=== PATIENT | female | born 1960 | race Caucasian/White ===

== ENCOUNTER 2017-12-01 12:44 | Emergency (ER) | payer BC ==
--- NOTE | 2017-12-01 13:48 | EDPHY ---
H & P Smoking Status: Current every day smoker Time Seen by Provider: 12/01/17 13:45 HPI/ROS: Chief complaint. Difficulty breathing HPI. 57-year-old female arrive 4 days ago from [place]. She has had anxiety and insomnia. He has been drinking alcohol. Nausea and vomiting. Bad anxiety. Some abdominal discomfort. AAA diagnosed 4 years ago and never had follow-up. She has a history of hypothyroid but has not had her thyroid checked. No chest discomfort or shortness of breath ROS Constitutional. no fever/chills, no weakness Eyes. no problems with vision ENT. no sore throat, no nasal drainage Cardiovascular. no chest pain Respiratory. no shortness of breath, no cough Abdominal. Slight abdominal pain with nausea vomiting . no problems urinating MS. no calf pain/swelling, no neck/back pain, no joint pain Skin. no rash Lymph. no swollen glands Neuro. no headache, no dizziness, no difficulty walking or with speech (Margarito Coulter) Past Medical/Surgical History: Triple AAA, COPD, hypothyroid (Margarito Coulter) Social History: Single, nonsmoker, recent alcohol (Margarito Coulter) Physical Exam: General Appearance: Alert well-developed female mild distress vital signs significant heart rate 121 and blood pressure 152/100 Eyes: Pupils equal and round no pallor or injection. ENT, Mouth: Mucous membranes are moist. Respiratory: There are no retractions, lungs are clear to auscultation. Cardiovascular: Regular rate and rhythm. Gastrointestinal: Abdomen is soft with minimal tenderness. No pulsatile mass. Normal bowel sounds Neurological: Awake and alert, sensory and motor exams grossly normal. Skin: Warm and dry, no rashes. Musculoskeletal: Neck is supple nontender. Extremities symmetrical, full range of motion. Psychiatric: Patient is oriented X 3, there is no agitation. (Margarito Coulter) Constitutional: Initial Vital Signs Temperature (C) 36.7 C 12/01/17 12:49 Heart Rate 121 H 12/01/17 12:49 Respiratory Rate 20 12/01/17 12:49 Blood Pressure 152/100 H 12/01/17 12:49 O2 Sat (%) 92 12/01/17 12:49 O2 Delivery Mode Room Air Allergies/Adverse Reactions: No Known Allergies Allergy (Unverified 12/01/17 12:49) Home Medications: Medication Instructions Recorded Levothyroxine 12/01/17 Medical Decision Making - Diagnostics Imaging Results: Imaging Impressions Abdomen Ultrasound 12/01/17 14:17 Impression: The aorta tapers normally with no aneurysmal dilatation identified. Atherosclerotic changes are seen in the abdominal aorta. Results called and discussed with Dr. Adam on 12/01/2017 at 15:32. Chest X-Ray 12/01/17 15:08 Impression: Negative frontal chest radiograph. Procedures: IV normal saline. Zofran for nausea. Oral Ativan. (Margarito Coulter) I took over care of this patient at 3:00 p.m.. We are awaiting results of an abdominal ultrasound to evaluate for a AAA the patient states she has a history of. The patient is here for anxiety, nausea and vomiting alcohol abuse. 3:35 p.m., abdominal ultrasound results discussed with staff radiologist Dr. Malachi Snow. No evidence of a AAA. The aorta is normal. 3:45 p.m., the patient was re-evaluated. She is resting comfortably at this time. Her tachycardia has resolved after some Ativan and IV fluids. Repeat abdominal exam she is soft and without tenderness on palpation throughout her abdomen. I discussed the results of her blood work. At this time I feel she can be discharged from the emergency department. She feels comfortable with this. Her leukocytosis likely secondary to vomiting. She demonstrates no other signs or symptoms of acute surgical/inflammatory or infectious process. We had our case manager specialist visit with the patient and set her up with follow-up through [facility] as well as help find her a place to stay through the [facility] system here in [place]. Return to emergency department precautions were reviewed with the patient thoroughly. All of her questions were answered. She was discharged from the emergency department in good condition. ( Milana Singh) Care Turn Over: care to Dr. Singh at 3 pm (Margarito Coulter) - Data Points Laboratory Results: Laboratory Results 12/01/17 14:40 12/01/17 14:40 12/01/17 12/01/17 14:40 14:40 WBC 18.97 10^3/uL H 10^3/uL (3.80-9.50) RBC 4.35 10^6/uL 10^6/uL (4.18-5.33) Hgb 14.1 g/dL g/dL (12.6-16.3) Hct 39.7 % % (38.0-47.0) MCV 91.3 fL fL (81.5-99.8) MCH 32.4 pg pg (27.9-34.1) MCHC 35.5 g/dL g/dL (32.4-36.7) RDW 14.2 % % (11.5-15.2) Plt Count 347 10^3/uL 10^3/uL (150-400) MPV 10.0 fL fL (8.7-11.7) Neut % (Auto) 77.1 % H % (39.3-74.2) Lymph % (Auto) 16.0 % % (15.0-45.0) [place] % (Auto) 5.4 % % (4.5-13.0) Eos % (Auto) 0.7 % % (0.6-7.6) Baso % (Auto) 0.4 % % (0.3-1.7) Nucleat RBC Rel Count 0.0 % % (0.0-0.2) Absolute Neuts (auto) 14.63 10^3/uL H 10^3/uL (1.70-6.50) Absolute Lymphs (auto) 3.03 10^3/uL H 10^3/uL (1.00-3.00) Absolute Monos (auto) 1.02 10^3/uL H 10^3/uL (0.30-0.80) Absolute Eos (auto) 0.14 10^3/uL 10^3/uL (0.03-0.40) Absolute Basos (auto) 0.08 10^3/uL 10^3/uL (0.02-0.10) Absolute Nucleated RBC 0.00 10^3/uL 10^3/uL (0-0.01) Immature Gran % 0.4 % % (0.0-1.1) Immature Gran # 0.07 10^3/uL 10^3/uL (0.00-0.10) Sodium 135 mEq/L mEq/L (135-145) Potassium 4.5 mEq/L mEq/L (3.3-5.0) Chloride 94 mEq/L L mEq/L (97-110) Carbon Dioxide 23 mEq/l mEq/l (22-31) Anion Gap 18 mEq/L H mEq/L (8-16) BUN 7 mg/dL mg/dL (7-23) Creatinine 0.6 mg/dL mg/dL (0.6-1.0) Estimated GFR > 60 Glucose 82 mg/dL mg/dL (70-100) Calcium 9.2 mg/dL mg/dL (8.5-10.4) Total Bilirubin 0.8 mg/dL mg/dL (0.1-1.4) Conjugated Bilirubin 0.5 mg/dL mg/dL (0.0-0.5) Unconjugated Bilirubin 0.3 mg/dL mg/dL (0.0-1.1) AST 31 IU/L IU/L (14-46) ALT 31 IU/L IU/L (9-52) Alkaline Phosphatase 104 IU/L IU/L (38-126) Total Protein 8.0 g/dL g/dL (6.3-8.2) Albumin 4.7 g/dL g/dL (3.5-5.0) Lipase 65 IU/L IU/L (23-300) Medications Given: Discontinued Medications Sodium Chloride (Ns) 1,000 mls @ 0 mls/hr IV EDNOW ONE; Wide Open PRN Reason: Protocol Stop: 12/01/17 14:19 Last Admin: 12/01/17 14:44 Dose: 1,000 mls Sodium Chloride (Ns) 1,000 mls @ 0 mls/hr IV EDNOW ONE; Wide Open PRN Reason: Protocol Stop: 12/01/17 14:19 Last Admin: 12/01/17 14:44 Dose: 1,000 mls Lorazepam (Ativan) 1 mg PO EDNOW ONE Stop: 12/01/17 14:19 Last Admin: 12/01/17 14:43 Dose: 1 mg Ondansetron HCl (Zofran) 4 mg IVP EDNOW ONE Stop: 12/01/17 14:19 Last Admin: 12/01/17 14:43 Dose: 4 mg Departure - Departure Disposition: Home, Routine, Self-Care Clinical Impression: Vomiting, Anxiety, Leukocytosis, Alcohol abuse Condition: Good Instructions: Abuse of Alcohol (ED), Anxiety (ED) Additional Instructions: Read and follow provided instructions. [facility] with [facility] for re-evaluation in the next 2-3 days. They have open clinic appointment days during the week. Call their office for appointment time. They can also help you with detox treatment plans. Return to the emergency department for worsening symptoms, abdominal pain, vomiting and inability to keep fluids down, difficulty breathing, lightheadedness or other serious concerns. Referrals: [facility],. [Clinic] - As per Instructions
[2017-12-01] MEDS ORDERED: ONDANSETRON 4 MG/2 ML VIAL IVP ONE (14:18)
[2017-12-01] MEDS ORDERED: LORazepam 1 MG TAB PO ONE (14:18)
[2017-12-01] MEDS ORDERED: NS 1,000 ML IV ONE ×2 (14:18)
[2017-12-01 15:06] LABS: PLATELET COUNT 347 10^3/uL (150-400)
[2017-12-01 16:20] VITALS: BP 146/100
--- NOTE | 2017-12-01 17:12 | ASMTCMCOM ---
CM Note CM Note Notes: Pt presented to the ED for anxiety, lethargy, SOB, abdominal pain. Pt reported to the ED MD that she has an abdominal aortic aneurysm. Pt received a chest x-ray and abdominal ultrasound, both came back negative. Pt recently moved to [place] from [place]. Pt states she has been staying at the [facility] but now she is in need of a fdc. This CM provided patient with information about [facility] and [facility] and explained that she should be able to stay at either fdc for one night but then will have to complete the Coordinated Entry process tomorrow. Pt seemed to be familiar with the fdc options, locations, and said "yah I've called them, I know I have to get there by 7pm." Pt offered information on [facility] and recommended she establish a primary care provider. Pt declined information on [facility], stating "I won't need that." Pt then asked for food and when this CM informed patient the ED does not regularly provide meals or food in general, pt seemed surprised, stating "Really? I'm used to hospitals that provide food." Pt was provided discharge paperwork and got dressed but then just turned the lights off again and laid down in bed; so the ED RN had to have security assist patient exit the ED. CM available for further assistance if needed. Date Signed: 12/01/2017 05:11 PM Electronically Signed By:Sharmin Turner RN
--- NOTE | 2017-12-01 17:15 | ASDISCHSUM ---
Discharge Information Plan Status:Homeless/Care Home Medically Cleared to Leave: Discharge Date:12/01/2017 04:17 PM D/C Disposition:Streets (Homeless) ADT D/C Disposition:Home, Routine, Self-Care Projected Discharge Date:12/01/2017 04:17 PM Transportation at D/C:None or Unknown Discharge Delay Reason: Follow-Up Date:12/01/2017 04:17 PM Discharge Slot: Final Diagnosis: Placement Information Patient Contact Information Contact Name:DESTINYDede Relationship: Address: Home Phone: Work Phone: City: Alternate Phone: State/Zip Code: Email: Financial Information Financial Class:HMO and PPO Plans Primary Plan Desc: OUT OF STATE INDEMNITY Primary Plan Number:[id number] Secondary Plan Desc: Secondary Plan Number: Assessment Information [facility] CM Progress Note CM Note CM Note Notes: Pt presented to the ED for anxiety, lethargy, SOB, abdominal pain. Pt reported to the ED MD that she has an abdominal aortic aneurysm. Pt received a chest x-ray and abdominal ultrasound, both came back negative. Pt recently moved to [place] from [place]. Pt states [facility] but now she is in need of a longterm. This CM provided patient with information about [facility] and [facility] longterm and explained that she should be able to stay at either longterm for one night but then will have to complete the Coordinated Entry process tomorrow. Pt seemed to be familiar with the longterm options, locations, and said "yah I've called them, I know I have to get there by 7pm." Pt offered information on [facility] and recommended she establish a primary care provider. Pt declined information on [facility], stating "I won't need that." Pt then asked for food and when this CM informed patient the ED does not regularly provide meals or food in general, pt seemed surprised, stating "Really? I'm used to hospitals that provide food." Pt was provided discharge paperwork and got dressed but then just turned the lights off again and laid down in bed; so the ED RN had to have security assist patient exit the ED. CM available for further assistance if needed. Date Signed: 12/01/2017 05:11 PM Electronically Signed By:Sharmin Turner RN Intervention Information Intervention Type:Community Resources Date of Service:12/01/2017 05:14 PM Patient Type:Emergency Room Staff Member:ANTONINA Turner, Sharmin Hours:0.25 Discipline:Dip Lube Operator Severity: Comment:
== END 2017-12-01 16:17 | disposition home or self-care (01) ==
DX: R06.09 Other forms of dyspnea (principal); F11.10 Opioid abuse, uncomplicated; F41.9 Anxiety disorder, unspecified; D72.829 Elevated white blood cell count, unspecified; F10.10 Alcohol abuse, uncomplicated; E86.9 Volume depletion, unspecified; F17.200 Nicotine dependence, unspecified, uncomplicated; J44.9 Chronic obstructive pulmonary disease, unspecified
CPT/HCPCS: 96374; J2405

== ENCOUNTER 2017-12-03 14:46 | Emergency (ER) | payer BC ==
[2017-12-03] MEDS ORDERED: ONDANSETRON 4 MG/2 ML VIAL ONE (15:28)
[2017-12-03] MEDS ORDERED: ONDANSETRON 4 MG/2 ML VIAL IVP ONE (15:29)
[2017-12-03] MEDS ORDERED: NS 1,000 ML IV ONE (15:29)
--- NOTE | 2017-12-03 15:29 | EDPHY ---
H & P Time Seen by Provider: 12/03/17 14:55 HPI/ROS: Chief complaint. Weak and lethargic HPI. Patient is a 57-year-old female recently moved from [place]. She was seen in our emergency department 2 days ago for weakness and lethargy. She says this has continued since she left. The workup was normal previously. She has been drinking alcohol as she feels anxious. No fever, chest pain, shortness of breath, abdominal pain. Some nausea and some diarrhea. She was evaluated by case specialist who provided assistance in terms recommendations for [facility] and the custodial. ROS Constitutional. Weakness Eyes. no problems with vision ENT. no sore throat, no nasal drainage Cardiovascular. no chest pain Respiratory. no shortness of breath, no cough Abdominal. Nausea and diarrhea . no problems urinating MS. no calf pain/swelling, no neck/back pain, no joint pain Skin. no rash Lymph. no swollen glands Neuro. no headache, no dizziness, no difficulty walking or with speech Past Medical/Surgical History: Hypothyroid, COPD Patient gave a history of AAA however we did an ultrasound 2 days ago that showed no evidence of AAA Social History: Single, daily smoker, recent alcohol Smoking Status: Current every day smoker Physical Exam: General Appearance: Alert well-developed female mild distress vital signs are stable Eyes: Pupils equal and round no pallor or injection. ENT, Mouth: Mucous membranes are moist. Respiratory: There are no retractions, lungs are clear to auscultation. Cardiovascular: Regular rate and rhythm. Gastrointestinal: Abdomen is soft and nontender, no masses, bowel sounds normal. Neurological: Awake and alert, sensory and motor exams grossly normal. Skin: Warm and dry, no rashes. Musculoskeletal: Neck is supple nontender. Extremities symmetrical, full range of motion. Psychiatric: Patient is oriented X 3, there is no agitation. Constitutional: Initial Vital Signs Temperature (C) 36.5 C 12/03/17 14:48 Heart Rate 90 12/03/17 14:48 Respiratory Rate 17 12/03/17 14:48 Blood Pressure 121/83 H 12/03/17 14:48 O2 Sat (%) 93 12/03/17 14:48 O2 Delivery Mode Room Air Allergies/Adverse Reactions: No Known Allergies Allergy (Verified 12/03/17 14:47) Home Medications: Medication Instructions Recorded Levothyroxine 12/01/17 Medical Decision Making Procedures: IV normal saline with 1 L given. Zofran for nausea ED Course/Re-evaluation: Case management is seen this patient. Patient agrees to go to the alcohol recovery Center Re-evaluation by me at 4:20 p.m. Patient and I discussed laboratory evaluation, treatment plan including recommendation for [facility]. She expresses understanding and agreement. Differential Diagnosis: Anxiety and alcohol intoxication. Poor social situation. Previous significant leukocytosis 2 days ago and thought to be attributed to vomiting. Likely this is the case again today. No evidence for infectious disease - Data Points Laboratory Results: Laboratory Results 12/03/17 15:39 12/03/17 15:39 Medications Given: Discontinued Medications Chlordiazepoxide (Librium 25 Mg Prepack#6) 1 btl TAKEHOME EDNOW ONE Stop: 12/03/17 16:25 Last Admin: 12/03/17 16:33 Dose: 1 btl Sodium Chloride (Ns) 1,000 mls @ 0 mls/hr IV EDNOW ONE; Wide Open PRN Reason: Protocol Stop: 12/03/17 15:30 Last Admin: 12/03/17 15:35 Dose: 1,000 mls Ondansetron HCl (Zofran) 4 mg IVP EDNOW ONE Stop: 12/03/17 15:30 Last Admin: 12/03/17 15:35 Dose: 4 mg Departure - Departure Disposition: Home, Routine, Self-Care Clinical Impression: Alcohol intoxication Condition: Good Instructions: Chlordiazepoxide/Clidinium (By mouth), Alcohol Intoxication (ED) Additional Instructions: We will send you by taxi to the alcohol recovery Center. You will be on a Librium protocol to help with alcohol withdrawal. I will also give you the number of [facility] and [facility] Referrals: NONE *PRIMARY CARE P,. [Primary Care Provider] - As per Instructions [facility],. [Clinic] - As per Instructions [facility] [Outside] - 2-3 days without fail
[2017-12-03 15:51] LABS: PLATELET COUNT 290 10^3/uL (150-400)
[2017-12-03] MEDS ORDERED: CHLORDIAZEPOXIDE 25MG PREPK#6 BTL TAKEHOME ONE (16:24)
--- NOTE | 2017-12-03 16:24 | ASMTCMCOM ---
CM Note CM Note Notes: Patient presents to the ER with c/o anxiety and weakness. Please see ER report, as well as CM notes from her recent ER vist on 12/01/17. Patient confirms that she did receive resource information from CM on her prior visit. I offered to get patient to the [facility] if she feels that her anxiety is related to alcohol withdrawal. Patient states "yes, and I need some counseling". I encouraged patient to follow up with the crisis center at [facility] (same location as the [facility]) and reminded her that the crisis center is available 17/01. I also explained that the [facility] is a withdrawal/detox facility, not a rehab or respite assisted. Patient states that she came out to [place] from [facility] to "find work" but admits that she did not make any plans in advance. I encouraged patient to determine what her plans are for staying in [place] or returning to [place] so that she can decide on her options for assisted, etc Date Signed: 12/03/2017 04:23 PM Electronically Signed By:Ema Nino RN
[2017-12-03 16:42] VITALS: BP 111/72
== END 2017-12-03 16:41 | disposition home or self-care (01) ==
DX: F10.129 Alcohol abuse with intoxication, unspecified (principal); J44.9 Chronic obstructive pulmonary disease, unspecified; F17.200 Nicotine dependence, unspecified, uncomplicated; E86.9 Volume depletion, unspecified
CPT/HCPCS: 96374; G0480; J2405